=== PATIENT | female | born 1955 | race Caucasian/White ===

== ENCOUNTER → 2016-07-22 | Outpatient (CLI) | payer OTHER ==
[~2016-07-22] MED LIST: ASPI81TA82 PO; BIOT5000 PO; CALCTAB98 PO; CINN500C7 PO; FISHCAP PO; GLUCTAB6 PO; LUTE15CA PO; VITA100020 SL
[2016-07-22 09:14] LABS: AUTOMATED NEUTROPHIL # 2.4 TH/MM3 (1.8-7.7); BASOPHIL % 0.9 % (0.0-2.0); EOSINOPHIL # 0.3 TH/MM3 (0-0.4); EOSINOPHIL % 5.4 % (0.0-4.0); HEMO FLAGS DIFF FINAL; LYMPH % 40.3 % (9.0-44.0); MEAN CELL VOLUME 90.7 FL (80.0-100.0); MEAN CORPUSCULAR HEMOGLOBIN 31.4 PG (27.0-34.0); MEAN CORPUSCULAR HGB CONC 34.6 % (32.0-36.0); MONO % 5.6 % (0.0-8.0); NEUT % 47.8 % (16.0-70.0); PLATELET COUNT 194 TH/MM3 (150-450); RED BLOOD COUNT 4.52 MIL/MM3 (4.00-5.30); RED CELL DISTRIBUTION WIDTH 13.1 % (11.6-17.2)
[2016-07-22 10:04] LABS: ALKALINE PHOSPHATASE 84 U/L (45-117); ALT (GPT) 34 U/L (10-53); ANION GAP 10 MEQ/L (5-15); AST (GOT) 32 U/L (15-37); BICARBONATE 27.5 MEQ/L (21.0-32.0); BLOOD UREA NITROGEN 16 MG/DL (7-18); CHLORIDE 106 MEQ/L (98-107); FREE T3 3.08 PG/ML (2.18-3.98); FREE T4 1.04 NG/DL (0.76-1.46); GLOMERULAR FILTRATION RATE 68 ML/MIN (>89); GLUCOSE,FASTING 93 MG/DL (74-99); HDL CHOLESTEROL 61.7 MG/DL (40.0-60.0); LDL CHOLESTEROL 117 MG/DL (0-99); POTASSIUM 3.9 MEQ/L (3.5-5.1); SODIUM (NA) 143 MEQ/L (136-145); TOTAL BILIRUBIN ADULT 0.5 MG/DL (0.2-1.0)
== END ==
LOC: PLAB 06:55
PROVIDERS: ATTEND Family Medicine
DX: R73.01 Impaired fasting glucose (principal); R53.83 Other fatigue; E78.5 Hyperlipidemia, unspecified; E55.9 Vitamin D deficiency, unspecified
CPT/HCPCS: 80053; 80061; 82306; 84439; 84443; 84481; 85025

== ENCOUNTER → 2017-07-19 | Outpatient (CLI) | payer OTHER ==
[2017-07-19 14:06] LABS: AUTOMATED NEUTROPHIL # 4.6 TH/MM3 (1.8-7.7); BASOPHIL % 0.6 % (0.0-2.0); EOSINOPHIL % 0.6 % (0.0-4.0); HEMATOCRIT 43.3 % (35.0-46.0); HEMOGLOBIN 14.7 GM/DL (11.6-15.3); LYMPH % 30.9 % (9.0-44.0); LYMPHOCYTE # 2.2 TH/MM3 (1.0-4.8); MEAN CELL VOLUME 90.2 FL (80.0-100.0); MEAN CORPUSCULAR HEMOGLOBIN 30.6 PG (27.0-34.0); MEAN CORPUSCULAR HGB CONC 33.9 % (32.0-36.0); MEAN PLATELET VOLUME 8.1 FL (7.0-11.0); MONO % 4.5 % (0.0-8.0); MONOCYTE # 0.3 TH/MM3 (0-0.9); NEUT % 63.4 % (16.0-70.0); PLATELET COUNT 227 TH/MM3 (150-450); RED BLOOD COUNT 4.79 MIL/MM3 (4.00-5.30); RED CELL DISTRIBUTION WIDTH 13.8 % (11.6-17.2); WHITE BLOOD COUNT 7.2 TH/MM3 (4.0-11.0)
[2017-07-19 14:39] LABS: ALBUMIN 3.6 GM/DL (3.4-5.0); AST (GOT) 21 U/L (15-37); BICARBONATE 31.6 MEQ/L (21.0-32.0); BLOOD UREA NITROGEN 13 MG/DL (7-18); CALCIUM 9.3 MG/DL (8.5-10.1); CHLORIDE 103 MEQ/L (98-107); CHOLESTEROL 224 MG/DL (120-200); CREATININE 0.89 MG/DL (0.50-1.00); GLOMERULAR FILTRATION RATE 64 ML/MIN (>89); GLUCOSE,FASTING 76 MG/DL (74-99); SODIUM (NA) 140 MEQ/L (136-145)
[2017-07-19 14:48] LABS: ALKALINE PHOSPHATASE 129 U/L (45-117); ALT (GPT) 28 U/L (10-53); CHOLESTEROL/ HDL RATIO 2.66 RATIO; FREE T3 2.87 PG/ML (2.18-3.98); FREE T4 1.03 NG/DL (0.76-1.46); HDL CHOLESTEROL 83.9 MG/DL (40.0-60.0); LDL CHOLESTEROL 125 MG/DL (0-99); TOTAL BILIRUBIN ADULT 0.6 MG/DL (0.2-1.0); TOTAL PROTEIN 8.4 GM/DL (6.4-8.2); TRIGLYCERIDES 74 MG/DL (42-150)
== END ==
LOC: PLAB 11:52
PROVIDERS: ATTEND Family Medicine
DX: R53.83 Other fatigue (principal); E55.9 Vitamin D deficiency, unspecified; R73.01 Impaired fasting glucose; E78.5 Hyperlipidemia, unspecified
CPT/HCPCS: 36415; 80053; 80061; 82306; 84439; 84443; 84481; 85025

== ENCOUNTER 2017-11-09 08:30 | Inpatient (IN) ==
[2017-12-01] MEDS ORDERED: Chlorhexidine Gluconate 2% 1 Pack (2 Cloths) TOPICAL ONE (06:44)
[2017-12-01] MEDS ORDERED: Metoprolol Tartrate 25 MG Tablet PO ONE (06:44)
[2017-12-01] MEDS ORDERED: Sodium Chlor 0.9% Inj 500 ML IV.SIG SCH (07:00)
[2017-12-01] MEDS ORDERED: ceFAZolin 2 GM Premix Inj 2 GM/50 ML PIGGYBACK IV.SIG SCH (07:00)
[2017-12-01 07:07] LABS: Baso # (Auto) 0.1 th/mm3 (0.0-0.2); Baso % (Auto) 1.1 % (0.0-2.0); Eos # (Auto) 0.2 th/mm3 (0.0-0.4); Eos % (Auto) 4.4 % (0.0-4.0); Hematocrit 40.9 % (35.0-46.0); Hemoglobin 14.1 gm/dL (11.6-15.3); Lymph # (Auto) 2.2 th/mm3 (1.0-4.8); Lymph % (Auto) 42.2 % (9.0-44.0); Mean Corpuscular HGB Conc 34.6 % (32.0-36.0); Mean Corpuscular Hemoglobin 31.1 pg (27.0-34.0); Mean Platelet Volume 7.9 fL (7.0-11.0); Mono # (Auto) 0.3 th/mm3 (0.0-0.9); Mono % (Auto) 6.7 % (0.0-8.0); Neut # (Auto) 2.3 th/mm3 (1.8-7.7); Neut % (Auto) 45.6 % (16.0-70.0); Platelet Count 241 th/mm3 (150-450); Red Blood Count 4.54 mil/mm3 (4.00-5.30); Red Cell Distribution Width 13.8 % (11.6-17.2); White Blood Count 5.1 th/mm3 (4.0-11.0)
[2017-12-01] MEDS ORDERED: Bupivacaine/Epinephrine Inj 0.25% 50 ML Vial ONE (07:25)
[2017-12-01 07:50] LABS: Calcium 9.1 mg/dL (8.5-10.1); Carbon Dioxide 26.6 meq/L (21.0-32.0); Potassium 4.8 meq/L (3.5-5.1)
[2017-12-01] MEDS ORDERED: Phenylephrine/NS 1000 MCG/10ML Syringe IV.PUSH ONE (08:00)
[2017-12-01] MEDS ORDERED: Lidocaine PF 1% Inj 5 ML Syringe OTHER ONE (08:00)
[2017-12-01] MEDS ORDERED: Ketorolac Inj 30 MG/ML (IVP) Vial IV.PUSH ONE (08:00)
--- NOTE | 2017-12-01 08:31 | P.OP ---
- Preoperative Diagnosis (1) Diverticulitis of large intestine with complication - Postoperative Diagnosis (1) Diverticulitis of large intestine with complication Date of procedure: 12/01/17 Procedure: lap assisted sigmoidectomy with rigid proctosigmoidoscopy, buddy Anesthesia: GETA Surgeon: Duane Aparicio MD Estimated blood loss (mL): 20 Pathology: other (sigmoid colon) Operation and Findings: adhesions, diverticulitis of sigmoid, no leak
[2017-12-01] MEDS ORDERED: Bupivacaine PF 0.25% Inj 30 ML Vial ONE (09:13)
[2017-12-01] MEDS ORDERED: Sugammadex Inj 200 MG/2 ML Vial IV.PUSH ONE (09:14)
[2017-12-01] MEDS ORDERED: Bisacodyl 10 MG Supp RECTAL PRN (11:38)
[2017-12-01] MEDS ORDERED: Promethazine 25 MG Supp RECTAL PRN (11:38)
[2017-12-01] MEDS ORDERED: Post-op Orders (for Pharmacy) OTHER ONE (11:38)
[2017-12-01] MEDS ORDERED: Ketorolac Inj 30 MG/ML (IVP) Vial IV.PUSH PRN (11:38)
[2017-12-01] MEDS ORDERED: fentaNYL Citrate Inj 100 MCG/2 ML Ampul ONE (12:24)
--- NOTE | 2017-12-01 12:29 | MP ---
cc: Manav Zuniga MD DATE OF OPERATION: 12/01/2017 PREOPERATIVE DIAGNOSIS: Recurrent sigmoid diverticulitis. POSTOPERATIVE DIAGNOSIS: Recurrent sigmoid diverticulitis. PROCEDURE PERFORMED: Rigid sigmoidoscopy. SURGEON: Manav Zuniga MD ANESTHESIA: General endotracheal. COMPLICATIONS: None. INDICATIONS FOR PROCEDURE: Ms. Temple is a pleasant 62-year-old female who has had multiple episodes of diverticulitis. She is currently in the operating room with Dr. Duane Aparicio undergoing a laparoscopic-assisted sigmoid colectomy. Dr. Aparicio was made to perform a rigid sigmoidoscopy to evaluate the distal rectal stump and the anastomosis. Risks and benefits of the procedure were discussed with the patient by Dr. Aparicio. DETAILS OF PROCEDURE: The patient was in the operating room with Dr. Aparicio. Please see his operative note for the details of his procedure. The patient was in lithotomy position in stirrups. A digital rectal exam revealed no gross abnormalities, no masses, no blood. The rigid sigmoidoscope was then inserted. Using direct visualization, the distal rectal stump was visualized all the way up to the staple line. There was a small amount of liquid stool which was evacuated. There were no masses, no polyps and no bleeding noted. The staple line was noted to be intact. The rigid sigmoidoscope was then withdrawn. EEA anastomosis was then performed. Please see Dr. Aparicio's operative note for that. I then performed a second rigid sigmoidoscopy. The rigid sigmoidoscope was again inserted. The rectum was insufflated and the anastomosis was held under water and Dr. Aparicio reported no air bubbles. The scope was advanced up to the staple line, which was intact without evidence of bleeding. The scope was then withdrawn. The patient tolerated the procedure well. I left the patient in the care of Dr. Duane Aparicio. Manav Zuniga MD [facility]/jl , 12:05 PM , 12:11 PM
--- NOTE | 2017-12-01 13:09 | P.PNGS ---
Subjective Patient reports: feels better (no fevers, npo) Physical Exam Vital signs: Vital Signs 12/01/17 06:41 12/01/17 12:07 Temperature 97.7 F 97.5 F L Pulse Rate 66 73 Respiratory Rate 18 16 Blood Pressure 124/75 113/62 Pulse Oximetry 98 98 Intake & Output 11/30/17 12/01/17 12/01/17 18:59 06:59 18:59 Intake Total 3050 / 3050 Output Total 350 / 350 Balance 2700 / 2700 Weight 74 kg Intake: IV 1050 / 1050 LR 1000 mL Inj 1,000 ML @ 30 1000 / 1000 mls/hr IV.SIG .Q24H ADRIÁN Rx#: [id number] Ancef 2 GM Premix Inj 2 gm In 50 / 50 50 ml @ 100 mls/hr IV.SIG UNSCH ADRIÁN Rx#:[id number] Anesthesia Amount 1999 / 1999 Output: Estimated Blood Loss 200 / 200 Urine Amount (Catheter) 150 / 150 Indwelling Urethral Catheter 150 / 150 Other: Weight On Admission 74 kg - Routine Respiratory Exam Present: CTA bilaterally - Routine Cardiovascular Exam Present: RRR - Routine Abdominal Exam Present: soft (incisonal tenderness, c/d/i, daria serosang) - Urinary Catheter Management Indwelling Urethral Catheter Cath placed during this visit: yes Reason for continuing: Hourly intake/output Insertion date: 12/01/17 Insertion time: 08:10 Results - Labs 12/01/17 06:55 12/01/17 06:55 Laboratory Results - last 24 hr 12/01/17 12/01/17 12/01/17 06:55 06:55 06:55 WBC 5.1 RBC 4.54 Hgb 14.1 Hct 40.9 MCV 90.0 MCH 31.1 MCHC 34.6 RDW 13.8 Plt Count 241 MPV 7.9 Neut % (Auto) 45.6 Lymph % (Auto) 42.2 [place] % (Auto) 6.7 Eos % (Auto) 4.4 H Baso % (Auto) 1.1 Neut # (Auto) 2.3 Lymph # (Auto) 2.2 [place] # (Auto) 0.3 Eos # (Auto) 0.2 Baso # (Auto) 0.1 WBC Differential . Differential Comment Auto diff final Sodium 140 Potassium 4.8 Chloride 106 Carbon Dioxide 26.6 Anion Gap 7 BUN 13 Creatinine 0.86 Estimated GFR 66 L Random Glucose 97 Calcium 9.1 Blood Type O Positive Blood Type Recheck Required Antibody Screen Negative
[2017-12-01] MEDS: ceFAZolin Inj 1,000 MG in Sodium Chlor 0.9% Inj 100 ML IV.SIG SCH (17:21)
--- NOTE | 2017-12-01 19:56 | MP ---
cc: Duane Aparicio MD DATE OF OPERATION: 12/01/2017 DATE OF PROCEDURE: 12/01/2017 PREOPERATIVE DIAGNOSIS: Diverticulitis, multiple episodes, complication with diverticular abscess history. POSTOPERATIVE DIAGNOSIS: Diverticulitis, multiple episodes, complication with diverticular abscess history. PROCEDURE PERFORMED: 1. Laparoscopic-assisted sigmoid partial colectomy. 2. Mobilization and takedown of splenic flexure. 3. Rigid proctosigmoidoscopy. 4. Lysis of adhesions. 5. LOVE. SURGEON: Duane Aparicio MD [employer] SPECIALIST: MD Dr. Damir Khan was necessary due to the complexity of the surgical case. Dr. Zuniga assisted with camera control and retraction, assisted with facilitation of the laparoscopic case and played a pivotal role. ANESTHESIA: GETA. IV FLUIDS: See anesthesia sheet. EBL: 200 mL DRAINS: None. COMPLICATIONS: None. WOUND CLASSIFICATION: Clean/contaminated. SPECIMENS: Sigmoid colon. FINDINGS: Multiple diverticula in the sigmoid, chronic adhesion to lateral peritoneal wall where chronic diverticulitis was, no leak on saline submersion and insufflation of rigid proctoscope. INDICATIONS FOR PROCEDURE: The patient is a 62-year-old female who presented with a history of diverticulitis. The patient has had multiple episodes. She had multiple frequent attacks and recently in September had a complication with diverticular abscess, status post interventional radiology drainage. Decision was made for colonoscopy, which was completed and plan for laparoscopic-assisted sigmoidectomy. DETAILS OF PROCEDURE: The patient was taken to the operating suite, placed in the lithotomy position. She was prepped and draped in the usual sterile fashion after induction of general endotracheal anesthesia. Brief timeout identifying the correct patient, procedure, surgical site. We were all in agreement with this. Attention first directed to the inferior umbilicus. Local anesthetic was injected. A small stab austin incision was made, 5 mm Optiview Visiport was done to enter the abdomen safely. Abdomen insufflated to 15 mm pneumoperitoneum. Two other trocars were placed, one right upper quadrant and one right lower quadrant, and a third one in the left lower quadrant. On inspection, the diverticular diseased colon and sigmoid was noted. There was noted to be somewhat adherent to the lateral peritoneal pelvic sidewall. This was attempted to be mobilized. A hand-assist port was placed after incision was done infraumbilically, approximately 6 cm. Further dissection and electrocautery through the subcutaneous tissue and fascia and peritoneum. The GelPort assist port with a wound protector was placed. The patient was placed initial Trendelenburg airplaned to the right. The white line of Toldt was identified and again that adhesion of the pelvis was mobilized. This was done with a Harmonic scalpel. This was done all the way up to the splenic flexure. The splenic flexure was then mobilized and taken down using Harmonic scalpel in order to identify and mobilize the tissue plane to assist with adequate length of colon. Once complete mobilization was done, the proximal sigmoid was identified. Pneumoperitoneum was removed and the mobilized colon was brought into the wound bed. The proximal portion was divided with a 75 Endo-JIMENEZ blue load. Next, the mesentery with the mesenteric vessels were taken down with Harmonic scalpel caudad. This was done down into the pelvis to incise the sigmoid colon and mobilize this. This was done with due diligence to avoid the left ureter and done again close to the colon mucosa. A small bleeder was done with over suturing of 3-0 Vicryl silk [id number] suture. Distally, once the colon was adequately mobilized down to the rectosigmoid junction, there was noted to be a healthy clean viable colon at this point without evidence of diverticular disease. The Contour was used to transect the distal portion of the sigmoid. Marking suture placed on the proximal sigmoid colon. This was sent for pathology permanent section. Next, after the adhesions had been again, the lysed and the colon had been mobilized and removed, the distal stomach line had small bleeding, which small [id number] suture was placed in order to ligate this. Next, Dr. Manav Zuniga broke scrub and performed a rigid proctosigmoidoscopy. Defer to Dr. Manav Zuniga's dictation for his portion of the procedure of the case. The proximal colon staple line was incised and the sizers were placed in the colon in order, initially, using a 25 followed by a 29 size spacer. This foot fit comfortably in the colon. Therefore, a 29 size EEA stapler was obtained. The stapler was handed off to Dr. Zuniga. The anvil was placed in the proximal colon. A 2-0 Prolene was used to pursestring suture around the proximal colon around the anvil. end. Next, with Dr. Zuniga's assistance placing the staple through the rectum, the anvil was grasped and locked in place to the stapler. The stapler was closed and fired, creating EEA circular anastomosis. No evidence of bleeding when saline submersion done with occlusion of the colon proximal without evidence of bubbling confirming no evidence of leaking. The colon further noted to sit nicely in the pelvis without any undue tension and taenia was lined up appropriately in correct orientation. The pelvis was then thoroughly irrigated. Hemostasis was obtained. Noted to be completely hemostatic. Further inspection of the abdomen noted all lap pads were removed, counts were correct. The abdomen was then closed using 0 Vicryl to run the peritoneal layer, followed by #1 Prolene for the anterior fascia, 3-0 Vicryl was used for subcuticular suture and a 4-0 Monocryl was used for skin. Ports were further closed with 4-0 Monocryl. LOVE drain dressing was placed. The patient tolerated the procedure well. No intraoperative complications. Dr. Manav Zuniga was present for the entire procedure. Dr. Zuniga assisted again with initial camera control and retraction. Manav Zuniga assisted with the suturing and mobilization and manipulation of tissue along with performance of the rigid proctosigmoidoscopy. The patient was extubated and taken stable to the PACU. MD BETH Wang/sahil , 06:26 PM , 06:41 PM
[2017-12-01] MEDS: Senna/Docusate Sodium 8.6/50 MG Tablet PO SCH (21:06)
--- NOTE | 2017-12-01 22:15 | ECG ---
Date Performed: 12/01/2017 Time Performed: 06:57:17 PTAGE: 62 years EKG: Sinus rhythm LOW QRS VOLTAGE IN PRECORDIAL LEADS BORDERLINE ECG NO PREVIOUS TRACING DOCTOR: Eddy Oliveira Interpretating Date/Time 12/01/2017 22:14:53
[2017-12-02] MEDS: ceFAZolin Inj 1,000 MG in Sodium Chlor 0.9% Inj 100 ML IV.SIG SCH ×2 (00:43→09:17)
[2017-12-02 06:04] LABS: Baso % (Auto) 0.1 % (0.0-2.0); Eos % (Auto) 0.1 % (0.0-4.0); Hemoglobin 11.9 gm/dL (11.6-15.3); Lymph # (Auto) 1.3 th/mm3 (1.0-4.8); Lymph % (Auto) 11.6 % (9.0-44.0); Mean Corpuscular Hemoglobin 30.9 pg (27.0-34.0); Mean Corpuscular Volume 90.9 fL (80.0-100.0); Mean Platelet Volume 7.7 fL (7.0-11.0); Mono # (Auto) 0.3 th/mm3 (0.0-0.9); Mono % (Auto) 2.4 % (0.0-8.0); Neut % (Auto) 85.8 % (16.0-70.0); Platelet Count 181 th/mm3 (150-450); Red Blood Count 3.85 mil/mm3 (4.00-5.30); Red Cell Distribution Width 13.7 % (11.6-17.2); White Blood Count 11.6 th/mm3 (4.0-11.0)
[2017-12-02 06:33] LABS: Calcium 7.8 mg/dL (8.5-10.1); Carbon Dioxide 23.9 meq/L (21.0-32.0); Potassium 3.8 meq/L (3.5-5.1)
--- NOTE | 2017-12-02 09:00 | P.PNGS ---
Subjective Patient reports: feels better, still having pain, no flatus Physical Exam Vital signs: Vital Signs 12/01/17 12:07 12/01/17 12:15 12/01/17 12:30 Temperature 97.5 F L Pulse Rate 73 71 65 Respiratory Rate 16 16 16 Blood Pressure 113/62 88/54 L 104/65 Pulse Oximetry 98 92 L 98 12/01/17 12:45 12/01/17 13:00 12/01/17 14:00 Temperature 97.5 F L 97.9 F Pulse Rate 63 65 65 Respiratory Rate 16 16 14 Blood Pressure 108/64 103/75 110/60 Pulse Oximetry 100 99 97 12/01/17 17:32 12/01/17 20:00 12/02/17 00:00 Temperature 97.9 F 98.2 F Pulse Rate 89 87 Respiratory Rate 16 18 19 Blood Pressure 109/59 L 100/56 L Pulse Oximetry 95 95 12/02/17 04:00 12/02/17 07:55 Temperature 97.9 F 97.2 F L Pulse Rate 80 65 Respiratory Rate 18 17 Blood Pressure 96/56 L 100/64 Pulse Oximetry 94 L 93 L Intake & Output 12/01/17 12/02/17 12/02/17 18:59 06:59 18:59 Intake Total 3550 / 3550 1900 / 1900 100 / 100 Output Total 1100 / 1100 550 / 550 Balance 2450 / 2450 1350 / 1350 100 / 100 Weight 75.9 kg Intake: IV 1350 / 1350 1200 / 1200 100 / 100 LR 1000 mL Inj 1,000 ML @ 100 1000 / 1000 mls/hr IV.CONT .Q10H ADRIÁN Rx#: [id number] LR 1000 mL Inj 1,000 ML @ 30 1000 / 1000 mls/hr IV.SIG .Q24H ADRIÁN Rx#: [id number] Ancef 2 GM Premix Inj 2 gm In 50 / 50 50 ml @ 100 mls/hr IV.SIG UNSCH ADRIÁN Rx#:[id number] Ancef Inj 1,000 MG In NS Inj 100 / 100 100 / 100 100 ML @ 200 mls/hr IV.SIG Q8H ADRIÁN Rx#:[id number] Flagyl 500 MG Inj 100 ML @ 100 200 / 200 100 / 100 100 / 100 mls/hr IV.SIG Q8H ADRIÁN Rx#: [id number] Oral 200 / 200 700 / 700 Anesthesia Amount 1999 Output: Urine 750 / 750 550 / 550 Estimated Blood Loss 200 / 200 Urine Amount (Catheter) 150 / 150 Indwelling Urethral Catheter 150 / 150 Other: Date of Last Bowel Movement 11/29/17 11/30/17 # Bowel Movements 0 - Routine Cardiovascular Exam Present: RRR - Routine Abdominal Exam Present: soft (incisional tenderness incisions c/d/i) - Urinary Catheter Management Indwelling Urethral Catheter Cath placed during this visit: yes Reason for continuing: Hourly intake/output Insertion date: 12/01/17 Insertion time: 08:10 Results - Labs 12/02/17 05:33 12/02/17 05:33 Laboratory Results - last 24 hr 12/02/17 12/02/17 05:33 05:33 WBC 11.6 H D RBC 3.85 L Hgb 11.9 D Hct 35.0 MCV 90.9 MCH 30.9 MCHC 34.0 RDW 13.7 Plt Count 181 MPV 7.7 Neut % (Auto) 85.8 H Lymph % (Auto) 11.6 [place] % (Auto) 2.4 Eos % (Auto) 0.1 Baso % (Auto) 0.1 Neut # (Auto) 10.0 H Lymph # (Auto) 1.3 [place] # (Auto) 0.3 Eos # (Auto) 0.0 Baso # (Auto) 0.0 WBC Differential . Differential Comment Auto diff final Sodium 139 Potassium 3.8 D Chloride 106 Carbon Dioxide 23.9 Anion Gap 9 BUN 11 Creatinine 0.78 Estimated GFR 74 L Random Glucose 128 H Calcium 7.8 L D Assessment and Plan - Plan POD 1 Lap assisted sigmoid colectomy for diverticulitis PLAN clears oob dvt ppx monitor labs remove tran pain control
[2017-12-02] MEDS: Senna/Docusate Sodium 8.6/50 MG Tablet PO SCH ×2 (09:17→20:13)
--- NOTE | 2017-12-02 15:38 | XR ---
EXAM DATE: 12/02/2017 12:00 AM EDT AGE/SEX: 62 years / Female INDICATIONS: Abdominal pain and vomiting post surgery. CLINICAL DATA: This is the patient's initial encounter. Patient reports that signs and symptoms have been present for 1 day and indicates a pain score of 6/10. MEDICAL/SURGICAL HISTORY: None. . Colectomy COMPARISON: . FINDINGS: Mild partially distended loops of small bowel and proximal colon. No pneumatosis or gross free air. N o abnormal calcifications. Degenerative changes of the lower lumbar spine. Surgical clips in the righ t upper quadrant. Soft tissues are unremarkable. CONCLUSION: 1. Findings consistent with mild adynamic ileus. Electronically signed by: Dontae Burgos MD 12/02/2017 3:36 PM EDT
[2017-12-02] MEDS: Morphine Sulfate Inj 2 MG/ML Vial IV.PUSH PRN ×3 (16:23→23:56)
[2017-12-02] MEDS ORDERED: Enoxaparin Inj 30 MG/0.3 ML Syringe SQ SCH (20:00)
[2017-12-02] MEDS: Enoxaparin Inj 30 MG/0.3 ML Syringe SQ SCH (20:06)
[2017-12-03] MEDS: Morphine Sulfate Inj 2 MG/ML Vial IV.PUSH PRN (06:22)
[2017-12-03] MEDS: Senna/Docusate Sodium 8.6/50 MG Tablet PO SCH ×2 (09:05→21:02)
--- NOTE | 2017-12-03 10:23 | P.PNGS ---
Subjective Patient reports: feels better, no flatus, bowel movement Physical Exam Vital signs: Vital Signs 12/02/17 12:00 12/02/17 16:00 12/02/17 20:00 Temperature 97.9 F 97.5 F L 98.4 F Pulse Rate 69 75 80 Respiratory Rate 16 16 16 Blood Pressure 100/59 L 104/58 L 112/57 L Pulse Oximetry 95 95 96 12/03/17 00:00 12/03/17 08:00 Temperature 98.4 F 98.7 F Pulse Rate 85 85 Respiratory Rate 17 17 Blood Pressure 106/57 L 112/59 L Pulse Oximetry 93 L 94 L Intake & Output 12/02/17 12/03/17 12/03/17 18:59 06:59 18:59 Intake Total 2200 / 2200 2049 / 2049 1000 / 1000 Output Total 3025 / 3025 Balance -825 / -825 2049 / 2049 1000 / 1000 Weight 76.4 kg Intake: IV 1200 / 1200 2000 / 2000 1000 / 1000 LR 1000 mL Inj 1,000 ML @ 100 1000 / 1000 2000 / 2000 1000 / 1000 mls/hr IV.CONT .Q10H ADRIÁN Rx#: [id number] Ancef Inj 1,000 MG In NS Inj 100 / 100 100 ML @ 200 mls/hr IV.SIG Q8H ADRIÁN Rx#:[id number] Flagyl 500 MG Inj 100 ML @ 100 100 / 100 mls/hr IV.SIG Q8H ADRIÁN Rx#: [id number] Oral 1000 / 1000 50 / 50 Output: Urine Amount (Catheter) 3025 / 3025 Indwelling Urethral Catheter 3025 / 3025 Other: # Voids 4 Date of Last Bowel Movement 11/30/17 # Bowel Movements 0 - Routine Respiratory Exam Present: CTA bilaterally - Routine Cardiovascular Exam Present: RRR - Routine Abdominal Exam Present: soft (inicisional tenderness buddy c/d/i) - Urinary Catheter Management Indwelling Urethral Catheter Cath placed during this visit: yes Reason for continuing: Hourly intake/output Insertion date: 12/01/17 Insertion time: 08:10 Results - Labs 12/02/17 05:33 12/02/17 05:33 - Imaging Imaging: ITS Impressions Abdomen X-Ray 12/02/17 00:00 CONCLUSION: 1. Findings consistent with mild adynamic ileus. Assessment and Plan - Plan POD 2 Lap assisted sigmoid colectomy for diverticulitis axr with ileus +bm last night, vomiting better PLAN advance to sips clears oob dvt ppx monitor labs pain control
[2017-12-03 12:32] LABS: Anion Gap 10 meq/L (5-15); Blood Urea Nitrogen 9 mg/dL (7-18); Calcium 7.8 mg/dL (8.5-10.1); Carbon Dioxide 26.1 meq/L (21.0-32.0); Chloride 105 meq/L (98-107); Glomerular Filtration Rate Greater Than 89 mL/min (>89); Glucose,Random 82 mg/dL (74-106); Potassium 3.6 meq/L (3.5-5.1); Sodium 141 meq/L (136-145)
[2017-12-03] MEDS: Enoxaparin Inj 30 MG/0.3 ML Syringe SQ SCH (21:03)
[2017-12-04 06:16] LABS: Baso % (Auto) 0.3 % (0.0-2.0); Eos # (Auto) 0.4 th/mm3 (0.0-0.4); Eos % (Auto) 3.7 % (0.0-4.0); Hematocrit 32.6 % (35.0-46.0); Hemoglobin 11.1 gm/dL (11.6-15.3); Lymph # (Auto) 2.3 th/mm3 (1.0-4.8); Lymph % (Auto) 22.6 % (9.0-44.0); Mean Corpuscular HGB Conc 34.1 % (32.0-36.0); Mean Corpuscular Hemoglobin 31.1 pg (27.0-34.0); Mean Platelet Volume 8.3 fL (7.0-11.0); Mono # (Auto) 0.3 th/mm3 (0.0-0.9); Mono % (Auto) 3.2 % (0.0-8.0); Neut # (Auto) 7.2 th/mm3 (1.8-7.7); Neut % (Auto) 70.2 % (16.0-70.0); Platelet Count 177 th/mm3 (150-450); Red Blood Count 3.58 mil/mm3 (4.00-5.30); Red Cell Distribution Width 13.8 % (11.6-17.2); White Blood Count 10.3 th/mm3 (4.0-11.0)
[2017-12-04 06:34] LABS: Anion Gap 12 meq/L (5-15); Blood Urea Nitrogen 7 mg/dL (7-18); Calcium 8.5 mg/dL (8.5-10.1); Carbon Dioxide 24.4 meq/L (21.0-32.0); Chloride 104 meq/L (98-107); Glomerular Filtration Rate Greater Than 89 mL/min (>89); Glucose,Random 74 mg/dL (74-106); Potassium 3.2 meq/L (3.5-5.1); Sodium 140 meq/L (136-145)
[2017-12-04] MEDS: Senna/Docusate Sodium 8.6/50 MG Tablet PO SCH ×2 (08:25→20:11)
--- NOTE | 2017-12-04 10:09 | P.PNGS ---
Subjective Patient reports: no new complaints, feels better, bowel movement Physical Exam Vital signs: Vital Signs 12/03/17 12:00 12/03/17 16:00 12/03/17 16:56 Temperature 98.4 F 97.5 F L 97.5 F L Pulse Rate 90 81 81 Respiratory Rate 17 17 17 Blood Pressure 119/69 116/59 L 116/59 L Pulse Oximetry 93 L 96 96 12/03/17 20:00 12/04/17 00:00 12/04/17 08:00 Temperature 98.8 F 98 F 98.3 F Pulse Rate 87 82 76 Respiratory Rate 18 18 20 Blood Pressure 129/70 98/54 L 117/74 Pulse Oximetry 96 94 L 94 L Intake & Output 12/03/17 12/04/17 12/04/17 18:59 06:59 18:59 Intake Total 1999 1720 / 1720 Output Total 900 / 900 Balance 1999 820 / 820 Weight 78.3 kg Intake: IV 1999 / 1999 1000 / 1000 LR 1000 mL Inj 1,000 ML @ 100 1999 / 1999 1000 / 1000 mls/hr IV.CONT .Q10H ADRIÁN Rx#: [id number] Oral 720 / 720 Output: Urine 900 / 900 Other: # Voids 4 Date of Last Bowel Movement 12/03/17 12/04/17 # Bowel Movements 2 - Routine Respiratory Exam Present: CTA bilaterally - Routine Cardiovascular Exam Present: RRR - Routine Abdominal Exam Present: soft (incisional tenderness, buddy c/d/i) - Urinary Catheter Management Indwelling Urethral Catheter Cath placed during this visit: yes Reason for continuing: Hourly intake/output Insertion date: 12/01/17 Insertion time: 08:10 Results - Labs 12/04/17 05:24 12/04/17 05:24 Laboratory Results - last 24 hr 12/03/17 12/04/17 12/04/17 11:15 05:24 05:24 WBC 10.3 RBC 3.58 L Hgb 11.1 L Hct 32.6 L MCV 91.0 MCH 31.1 MCHC 34.1 RDW 13.8 Plt Count 177 MPV 8.3 Neut % (Auto) 70.2 H Lymph % (Auto) 22.6 [place] % (Auto) 3.2 Eos % (Auto) 3.7 Baso % (Auto) 0.3 Neut # (Auto) 7.2 Lymph # (Auto) 2.3 [place] # (Auto) 0.3 Eos # (Auto) 0.4 Baso # (Auto) 0.0 WBC Differential . Differential Comment Auto diff final Sodium 141 140 Potassium 3.6 3.2 L Chloride 105 104 Carbon Dioxide 26.1 24.4 Anion Gap 10 12 BUN 9 7 Creatinine 0.56 0.49 L Estimated GFR Greater than 89 Greater than 89 Random Glucose 82 74 Calcium 7.8 L 8.5 - Imaging Imaging: ITS Impressions Abdomen X-Ray 12/02/17 00:00 CONCLUSION: 1. Findings consistent with mild adynamic ileus. Assessment and Plan - Plan POD 3 Lap assisted sigmoid colectomy for diverticulitis axr with ileus +bm last night, vomiting better PLAN advance to fulls oob dvt ppx monitor labs pain control d/c planning 24 hours -48 hours
[2017-12-04] MEDS: Enoxaparin Inj 30 MG/0.3 ML Syringe SQ SCH (20:12)
[2017-12-05] MEDS: Senna/Docusate Sodium 8.6/50 MG Tablet PO SCH (08:38)
--- NOTE | 2017-12-05 09:38 | P.PNGS ---
Subjective Patient reports: no new complaints, feels better, flatus, bowel movement Physical Exam Vital signs: Vital Signs 12/04/17 12:00 12/04/17 16:00 12/04/17 20:00 Temperature 97.9 F 98.3 F 98.4 F Pulse Rate 82 76 73 Respiratory Rate 20 15 17 Blood Pressure 133/65 120/69 132/63 Pulse Oximetry 97 98 96 12/05/17 00:00 Temperature 98 F Pulse Rate 73 Respiratory Rate 17 Blood Pressure 128/74 Pulse Oximetry 96 Intake & Output 12/04/17 12/05/17 12/05/17 18:59 06:59 18:59 Intake Total 1720 / 1720 2960 / 2960 Output Total 800 / 800 900 / 900 Balance 920 / 920 2060 / 2060 Weight 78.3 kg Intake: IV 1000 / 1000 2000 / 2000 LR 1000 mL Inj 1,000 ML @ 100 1000 / 1000 2000 / 2000 mls/hr IV.CONT .Q10H ADRIÁN Rx#: [id number] Oral 720 / 720 960 / 960 Output: Urine 800 / 800 900 / 900 Other: Date of Last Bowel Movement 12/04/17 12/04/17 # Bowel Movements 2 - Routine Respiratory Exam Present: CTA bilaterally - Routine Cardiovascular Exam Present: RRR - Routine Abdominal Exam Present: soft (incision c/d/i) - Urinary Catheter Management Indwelling Urethral Catheter Cath placed during this visit: yes Reason for continuing: Hourly intake/output Insertion date: 12/01/17 Insertion time: 08:10 Results - Labs 12/04/17 05:24 12/04/17 05:24 - Imaging Imaging: ITS Impressions Abdomen X-Ray 12/02/17 00:00 CONCLUSION: 1. Findings consistent with mild adynamic ileus. Assessment and Plan - Plan POD 4 Lap assisted sigmoid colectomy for diverticulitis axr with ileus resolved , +bm, doing well PLAN advance to reg soft diet oob dvt ppx monitor labs pain control buddy removed d/c planning today
[2017-12-05 13:03] VITALS: RESP 16
[2017-12-05 16:17] VITALS: BP 116/70; PULSE 64; TEMP 98.2; O2SAT 95
--- NOTE | 2017-12-15 14:39 | P.DS ---
Date of admission: 12/01/17 06:05 Primary care physician: Erika Garcia DO Attending physician on discharge: Duane Aparicio Anticipated date of discharge: 12/05/17 Brief History from admission: 62 year old female s/p Lap assisted sigmoid colectomy for diverticulitis DS: Diagnosis - Discharge Diagnosis (1) Diverticulitis of large intestine with complication Status: Acute DS: Summary Hospital Course: 62 year old female s/p Lap assisted sigmoid colectomy for diverticulitis. The patient did have a post op ileus which resolved. The patient was able to tolerate a regular diet. Her pain was controlled. She will follow up in the office. - Time Spent with Patient Total time spent providing and/or coordinating discharge services: Less than 30 minutes - Quality: VTE Deep Vein Thrombosis/Pulmonary Embolism Present on Admission: No Exam Narrative: Alert and awake Abd: incisions c/d/i; minimally pain on exam Results Procedures completed during hospitalization: s/p Lap assisted sigmoid colectomy for diverticulitis Completed studies during hospitalization: Pending at discharge 12/01/17 13:25 Surgical [PTH] Routine - Impressions ITS Impressions Abdomen X-Ray 12/02/17 00:00 CONCLUSION: 1. Findings consistent with mild adynamic ileus. Discharge Plan - Discharge Disposition Patient Disposition: Discharge Home - Discharge Condition Condition: Good - Discharge Order Discharge Orders: Discharge Order (Routine); Ordered 12/05/17 Ordered By: Duane Aparicio - Discharge Details Anticipated Discharge Date: 12/05/17 Discharge Comment: ok to d/c this afternoon if tolerating lunch, script on chart - Physicians Team Primary Care Provider: Erika Garcia Attending Provider: Duane Aparicio Other Providers: Manav Zuniga MD ; Surgeons,[facility] - Rxs /Orders / Referrals /Forms Prescriptions: Continue calcium carbonate [Calcium 600] 600 mg calcium (1,500 mg) Tablet 600 mg PO DAILY cholecalciferol (vitamin D3) [Vitamin D3] 1,000 unit Capsule 1,000 unit PO DAILY coconut oil 1,000 mg Capsule 1 cap PO DAILY omega [id number] oil [Fish Oil] 1,000 mg (120 mg-180 mg) Capsule 1 cap PO DAILY red yeast rice 600 mg Tablet 600 mg PO DAILY turmeric root extract 500 mg Capsule 500 mg PO DAILY Referrals: Duane Aparicio MD [Physician] - 12/12/17 1:00 pm Erika Garcia DO [Primary Care Provider] - See Instructions (Office closed on Mondays, please call Tuesday morning to schedule a follow up with your primary care physician ) - Discharge Instructions Patient Printed Instructions: Hydrocodone/Acetaminophen (By mouth), Diverticulitis (ED), Pain Management After Surgery (DC), Colectomy (DC), Lysis of Abdominal Adhesions (DC), Ileus (DC)
== END 2017-12-05 17:37 | disposition home or self-care (01) ==
LOC: HSDI 12-01 06:05 → N07 12-01 14:19
PROVIDERS: ADMIT Surgery; ATTEND Surgery